=== PATIENT | female | born 1975 | race Caucasian/White ===

== ENCOUNTER 2017-11-21 04:52 | Emergency (ER) | payer OTHER ==
[~2017-11-21] VITALS: Ht 152.4 cm; Wt 65.0 kg
[~2017-11-21 04:52] MED LIST: FLUO20TA25 PO; IBUP-1222 PO; METO25TA91 PO; ONDA4TAB10 PO; OXYC-302 PO
[2017-11-21] MEDS ORDERED: LORazepam 2 MG/ML, 1ML ONE (06:15)
[2017-11-21] MEDS ORDERED: ASPIRIN 81 MG TABLET CHEW ONE (06:15)
[2017-11-21 06:30] LABS: BASOPHILS # (AUTO) 0.04 x10^3/uL (0-0.1); BASOPHILS % (AUTO) 1 % (0-1); EOSINOPHILS # (AUTO) 0.13 x10^3/uL (0-0.4); EOSINOPHILS % (AUTO) 2 % (1-7); LYMPHOCYTES # (AUTO) 1.08 x10^3/uL (1-3.4); LYMPHOCYTES % (AUTO) 13 % (22-44); MD NO; MEAN CORPUSCULAR HEMOGLOBIN 29.4 pg (27.0-34.8); MEAN CORPUSCULAR HGB CONC 33.8 g/dL (32.4-35.8); MEAN PLATELET VOLUME 8.4 fL (7.4-10.4); MONOCYTES # (AUTO) 0.54 x10^3/uL (0.2-0.8); MONOCYTES % (AUTO) 7 % (2-9); NEUTROPHILS # (AUTO) 6.54 x10^3/uL (1.8-6.8); NEUTROPHILS % (AUTO) 79 % (42-75); PLATELET COUNT 234 x10^3/uL (130-400); RED CELL DISTRIBUTION WIDTH 12.6 % (9.6-15.2)
[2017-11-21] MEDS ORDERED: SODIUM CHLORIDE FLUSH 10ML SYR IVF ONE (06:30)
[2017-11-21] MEDS ORDERED: LORazepam 2 MG/ML, 1ML IVPush ONE (06:30)
[2017-11-21] MEDS ORDERED: SODIUM CHLORIDE 0.9% 1,000ML IVBOLUS ONE (06:30)
[2017-11-21] MEDS ORDERED: ASPIRIN 81 MG TABLET CHEW PO ONE (06:30)
[2017-11-21 06:37] LABS: ALANINE AMINOTRANSFERASE 34 U/L (12-78); ALBUMIN 3.8 g/dL (3.4-5.0); ANION GAP 5 mmol/L (5-15); CALCIUM 8.6 mg/dL (8.5-10.1); CHLORIDE 104 mmol/L (98-107); CREATININE 0.66 mg/dL (0.55-1.02)
[2017-11-21 06:42] LABS: ALKALINE PHOSPHATASE 93 U/L (45-117); BILIRUBIN,TOTAL 0.2 mg/dL (0.2-1.0); FREE T4 (FREE THYROXINE) 1.13 ng/dL (0.76-1.46); TOTAL PROTEIN 8.2 g/dL (6.4-8.2); TROPONIN I < 0.015 ng/mL (0.000-0.045)
[2017-11-21 07:59] VITALS: BP 113/71
== END 2017-11-21 08:15 | disposition home or self-care (01) ==
LOC: ED 07:13
DX: F41.1 Generalized anxiety disorder (principal); R00.2 Palpitations; R07.89 Other chest pain; E03.9 Hypothyroidism, unspecified
CPT/HCPCS: 36415; 71045; 80053; 83605; 84439; 84443; 84484; 85025; 93005; 96361; 96374; 99285; J2060; J7030